=== PATIENT | female | born 1975 | race Caucasian/White ===

== ENCOUNTER 2020-12-28 14:21 | Outpatient (CLI) | payer BC | END 2020-12-28 14:22 | disposition home or self-care (01) | LOC: BICULT 14:21 | PROVIDERS: ATTEND Internal Medicine | DX: Z01.818 Encounter for other preprocedural examination (principal); N18.6 End stage renal disease | CPT/HCPCS: 93970 ==

== ENCOUNTER 2021-07-03 06:34 | Day surgery (SDC) | payer BC ==
[2021-06-27 11:32] VITALS: BMI 22.2
[2021-07-03 09:52] VITALS: BP 147/76; TEMP 98.2
[2021-07-03] MEDS ORDERED: Heparin 1,000 UNITS/ML VIAL ONE (11:56)
== END 2021-07-03 10:25 | disposition home or self-care (01) ==
LOC: SPEC 06:34
PROVIDERS: ATTEND Surgery
PROC: B51W1ZZ Fluoroscopy of Dialysis Shunt/Fistula using Low Osmolar Contrast (ICD-10-PCS; principal; 2021-07-03)
DX: T82.858A Stenosis of other vascular prosthetic devices, implants and grafts, initial encounter (principal); I13.10 Hypertensive heart and chronic kidney disease without heart failure, with stage 1 through stage 4 chronic kidney disease, or unspecified chronic kidney disease; E11.22 Type 2 diabetes mellitus with diabetic chronic kidney disease; N18.6 End stage renal disease; D63.1 Anemia in chronic kidney disease; I25.10 Atherosclerotic heart disease of native coronary artery without angina pectoris; E78.5 Hyperlipidemia, unspecified; E11.42 Type 2 diabetes mellitus with diabetic polyneuropathy; K21.9 Gastro-esophageal reflux disease without esophagitis; E78.00 Pure hypercholesterolemia, unspecified; Z86.73 Personal history of transient ischemic attack (TIA), and cerebral infarction without residual deficits; Z87.891 Personal history of nicotine dependence; Z79.02 Long term (current) use of antithrombotics/antiplatelets; Z79.899 Other long term (current) drug therapy; Z88.0 Allergy status to penicillin; Z88.6 Allergy status to analgesic agent; Z99.2 Dependence on renal dialysis
CPT/HCPCS: 36901; J1644

== ENCOUNTER 2021-07-06 07:36 | Outpatient (CLI) | payer BC ==
[2021-07-06 21:10] LABS: SARS-CoV-2 PCR by NAA Not Detected (NotDetected)
== END 2021-07-06 07:37 | disposition home or self-care (01) ==
LOC: LABBT 07:36
PROVIDERS: ATTEND Surgery
DX: Z01.812 Encounter for preprocedural laboratory examination (principal); N18.6 End stage renal disease; Z20.822 Contact with and (suspected) exposure to COVID-19
CPT/HCPCS: U0003; U0005

== ENCOUNTER 2021-07-29 18:47 | Inpatient (IN) | payer BC, OTHER ==
[~2021-07-29 18:47] MED LIST: Heparin 10,000 UNITS/ 10 ML VIAL ONE
[2021-07-29 19:41] LABS: #Eosinphils 0.1 thou/uL (0.0-0.7); #Lymphocytes 1.2 thou/uL (1.20-3.40); #Monocytes 0.6 thou/uL (0.11-0.59); #Neutrophils 4.1 thou/uL (1.40-6.50); %Basophils 0.5 % (0.0-1.0); %Eosinophils 1.9 % (0.0-10.0); %Lymphocytes 19.6 % (21.0-51.0); %Monocytes 9.3 % (0.0-10.0); %Neutrophils 68.7 % (42.0-75.0); Hemoglobin 9.1 g/dL (12.0-16.0); Mean Corpuscular HGB CONC 33.5 g/dL (32.0-36.0); Mean Corpuscular Hemoglobin 31.3 pg (27.0-31.0); Mean Corpuscular Volume 93.4 fL (78.0-98.0); Mean Platelet Volume 7.9 fL (7.4-10.4); Platelet Count 270 thou/uL (130-400); RBC Distribution Width 14.2 % (11.5-14.5); Red Blood Cell (RBC) Count 2.91 mill/uL (4.20-5.40); White Blood Cell (WBC) Count 5.9 thou/uL (4.8-10.8)
[2021-07-29 20:00] LABS: ALT (SGPT) 9 U/L (8-55); AST (SGOT) 14 U/L (5-34); Albumin 3.7 g/dL (3.5-5.0); Alkaline Phosphatase 128 U/L (40-110); Anion Gap 22 mmol/L (10-20); BUN (Urea Nitrogen) 89 mg/dL (7.0-18.7); Bilirubin, Total 0.6 mg/dL (0.2-1.2); Calc. Creatinine Clearance 0 mL/min (70-130); Calcium 9.7 mg/dL (7.8-10.44); Carbon Dioxide 21 mmol/L (22-29); Chloride 101 mmol/L (98-107); Globulin 4.7 g/dL (2.4-3.5); Glucose 121 mg/dL (70-105); Potassium 6.3 mmol/L (3.5-5.1); Protein, Total 8.4 g/dL (6.0-8.3); Sodium 138 mmol/L (136-145)
[2021-07-29 20:19] LABS: CKMB 2.8 ng/mL (0-6.6)
[2021-07-29] MEDS ORDERED: Insulin Regular 300 UNITS/3 ML VIAL ONE (20:25)
[2021-07-29] MEDS ORDERED: Dextrose 50% Abboject 50 ML SYRINGE ONE (20:25)
[2021-07-29] MEDS ORDERED: Senokot S 8.6-50 MG TAB PO PRN (21:10)
[2021-07-29] MEDS ORDERED: Ondansetron ODT 4 MG TAB PO PRN (21:10)
[2021-07-29] MEDS ORDERED: Acetaminophen 325 MG TAB PO PRN (21:10)
[2021-07-29] MEDS ORDERED: Ondansetron PF 4 MG/2 ML Vial IVP PRN (21:10)
[2021-07-29] MEDS ORDERED: Dextrose 50% Abboject 50 ML SYRINGE SLOW IVP PRN (21:14)
[2021-07-29] MEDS ORDERED: HumaLOG 300 UNITS/3 ML VIAL SC PRN ×2 (21:14)
[2021-07-29] MEDS ORDERED: Dextrose 5% in Water 1,000 ML IV PRN (21:14)
[2021-07-29] MEDS ORDERED: hydrALAZINE 20 MG/ML VIAL SLOW IVP PRN (21:17)
[2021-07-29] MEDS ORDERED: Nitroglycerin 0.4 MG TAB (25 Tab Bottle) SL PRN (21:24)
[2021-07-29 22:05] LABS: Hemoglobin A1c 6.4 % (4.0-6.0)
[2021-07-29] MEDS ORDERED: hydrALAZINE 20 MG/ML VIAL SLOW IVP SCH (22:13)
[2021-07-29 22:15] LABS: SARS-CoV-2 NAA Rapid Test Not Detected (NotDetected)
[2021-07-29 23:54] LABS: HBSAg Index 0.18 S/CO (0-0.99); Hep B Surf Ag Non-Reactive S/CO (NonReactive)
[2021-07-30 06:18] LABS: #Eosinphils 0.1 thou/uL (0.0-0.7); #Monocytes 0.6 thou/uL (0.11-0.59); #Neutrophils 3.9 thou/uL (1.40-6.50); %Basophils 0.1 % (0.0-1.0); %Eosinophils 2.1 % (0.0-10.0); %Lymphocytes 17.7 % (21.0-51.0); %Monocytes 9.8 % (0.0-10.0); %Neutrophils 70.4 % (42.0-75.0); Hemoglobin 9.3 g/dL (12.0-16.0); Mean Corpuscular HGB CONC 32.6 g/dL (32.0-36.0); Mean Corpuscular Hemoglobin 30.1 pg (27.0-31.0); Mean Corpuscular Volume 92.4 fL (78.0-98.0); Mean Platelet Volume 7.7 fL (7.4-10.4); Platelet Count 286 thou/uL (130-400); RBC Distribution Width 14.1 % (11.5-14.5); Red Blood Cell (RBC) Count 3.09 mill/uL (4.20-5.40); White Blood Cell (WBC) Count 5.6 thou/uL (4.8-10.8)
[2021-07-30 06:39] LABS: Phosphorus 3.8 mg/dL (2.3-4.7)
[2021-07-30 06:43] LABS: Troponin I 0.161 ng/mL (< 0.028)
[2021-07-30 06:47] LABS: Anion Gap 17 mmol/L (10-20); BUN (Urea Nitrogen) 31 mg/dL (7.0-18.7); Calc. Creatinine Clearance 0 mL/min (70-130); Calcium 9.3 mg/dL (7.8-10.44); Carbon Dioxide 28 mmol/L (22-29); Chloride 98 mmol/L (98-107); Glucose 94 mg/dL (70-105); Potassium 4.2 mmol/L (3.5-5.1); Sodium 139 mmol/L (136-145)
[2021-07-30 07:47] LABS: Hemoglobin 10.2 g/dL (12.0-16.0); Mean Corpuscular HGB CONC 32.7 g/dL (32.0-36.0); Mean Corpuscular Hemoglobin 30.2 pg (27.0-31.0); Mean Corpuscular Volume 92.4 fL (78.0-98.0); Mean Platelet Volume 7.7 fL (7.4-10.4); Platelet Count 309 thou/uL (130-400); RBC Distribution Width 14.1 % (11.5-14.5); Red Blood Cell (RBC) Count 3.36 mill/uL (4.20-5.40); White Blood Cell (WBC) Count 5.6 thou/uL (4.8-10.8)
[2021-07-30 08:04] LABS: Albumin 3.9 g/dL (3.5-5.0); Anion Gap 17 mmol/L (10-20); BUN (Urea Nitrogen) 31 mg/dL (7.0-18.7); BUN/Creatinine Ratio 5.89; Calc. Creatinine Clearance 0 mL/min (70-130); Carbon Dioxide 27 mmol/L (22-29); Chloride 97 mmol/L (98-107); Glucose 97 mg/dL (70-105); Phosphorus 3.8 mg/dL (2.3-4.7); Potassium 4.2 mmol/L (3.5-5.1); Sodium 137 mmol/L (136-145)
[2021-07-30] MEDS ORDERED: Mag-Al 1200 mg/1200 mg/30 ML UDCUP ONE (08:23)
[2021-07-30] MEDS ORDERED: NIFEdipine XL 30 MG TAB ONE (08:25)
[2021-07-30] MEDS ORDERED: Lisinopril 20 MG TAB PO SCH (09:00)
[2021-07-30] MEDS ORDERED: NIFEdipine XL 30 MG TAB PO SCH (09:00)
[2021-07-30 11:34] VITALS: BMI 23.1
[2021-07-30] MEDS ORDERED: Carvedilol 3.125 MG TAB PO SCH (12:00)
[2021-07-30] MEDS ORDERED: NIFEdipine XL 60 MG TAB PO SCH (15:15)
[2021-07-30] MEDS: Carvedilol 3.125 MG TAB PO SCH (16:47)
[2021-07-30] MEDS: Lisinopril 20 MG TAB PO SCH (20:20)
[2021-07-31 07:15] LABS: Hemoglobin 9.4 g/dL (12.0-16.0); Mean Corpuscular HGB CONC 33.7 g/dL (32.0-36.0); Mean Corpuscular Hemoglobin 31.2 pg (27.0-31.0); Mean Corpuscular Volume 92.7 fL (78.0-98.0); Mean Platelet Volume 7.2 fL (7.4-10.4); Platelet Count 269 thou/uL (130-400); Red Blood Cell (RBC) Count 3.01 mill/uL (4.20-5.40); White Blood Cell (WBC) Count 4.7 thou/uL (4.8-10.8)
[2021-07-31 08:30] LABS: Iron 49 ug/dL (50-170); Iron Binding Capacity, Total 154 mcg/dL (265-497)
[2021-07-31] MEDS: Lisinopril 20 MG TAB PO SCH (08:34)
[2021-07-31] MEDS: Carvedilol 3.125 MG TAB PO SCH ×2 (08:34→16:38)
[2021-07-31] MEDS ORDERED: NIFEdipine XL 90 MG TAB PO SCH (09:00)
[2021-07-31 09:45] LABS: Albumin 3.9 g/dL (3.5-5.0)
[2021-07-31 09:47] LABS: Calcium 9.5 mg/dL (7.8-10.44); Chloride 96 mmol/L (98-107); Potassium 4.7 mmol/L (3.5-5.1); Sodium 139 mmol/L (136-145)
[2021-07-31 09:48] LABS: Glucose 155 mg/dL (70-105)
[2021-07-31 09:49] LABS: Anion Gap 22 mmol/L (10-20); Carbon Dioxide 26 mmol/L (22-29)
[2021-07-31 09:51] LABS: Calc. Creatinine Clearance 8 mL/min (70-130)
[2021-07-31 09:52] LABS: BUN (Urea Nitrogen) 51 mg/dL (7.0-18.7); BUN/Creatinine Ratio 6.57
[2021-07-31 09:59] LABS: Phosphorus 6.9 mg/dL (2.3-4.7)
[2021-07-31] MEDS ORDERED: Heparin 10,000 UNITS/ 10 ML VIAL ONE (10:26)
[2021-07-31 15:24] VITALS: BP 115/55; TEMP 97.8
== END 2021-07-31 19:03 | disposition home or self-care (01) | DRG 640 ==
LOC: ERS 18:47 → ERHOLD 21:02 → 2SE 07-30 11:27
PROVIDERS: ADMIT Student in an Organized Health Care Education/Training Program; ATTEND Internal Medicine
PROC: 5A1D70Z Performance of Urinary Filtration, Intermittent, Less than 6 Hours Per Day (ICD-10-PCS; principal; 2021-07-31)
DX: E87.5 Hyperkalemia (principal); N18.6 End stage renal disease; J96.20 Acute and chronic respiratory failure, unspecified whether with hypoxia or hypercapnia; I21.4 Non-ST elevation (NSTEMI) myocardial infarction; J18.9 Pneumonia, unspecified organism; J96.10 Chronic respiratory failure, unspecified whether with hypoxia or hypercapnia; I13.2 Hypertensive heart and chronic kidney disease with heart failure and with stage 5 chronic kidney disease, or end stage renal disease; Z20.822 Contact with and (suspected) exposure to COVID-19; E87.2 Acidosis; E87.70 Fluid overload, unspecified; I16.0 Hypertensive urgency; E78.5 Hyperlipidemia, unspecified; K21.9 Gastro-esophageal reflux disease without esophagitis; E11.22 Type 2 diabetes mellitus with diabetic chronic kidney disease; I50.9 Heart failure, unspecified; E78.00 Pure hypercholesterolemia, unspecified; D63.1 Anemia in chronic kidney disease; R11.2 Nausea with vomiting, unspecified; Z88.6 Allergy status to analgesic agent; Z88.0 Allergy status to penicillin; Z28.21 Immunization not carried out because of patient refusal; Z99.2 Dependence on renal dialysis; Z87.891 Personal history of nicotine dependence; Z99.81 Dependence on supplemental oxygen; Z79.899 Other long term (current) drug therapy; Z79.02 Long term (current) use of antithrombotics/antiplatelets; Z83.3 Family history of diabetes mellitus; Z82.49 Family history of ischemic heart disease and other diseases of the circulatory system
CPT/HCPCS: 36415; 36416; 71045; 80048; 80053; 80069; 82553; 82728; 83036; 83540; 83550; 83735; 84100; 84484; 85025; 85027; 87340; 93005; 94760; 96374; 96375; J0360; J1644; J1815; J2405; U0002

== ENCOUNTER 2021-09-18 06:28 | Day surgery (SDC) | payer BC, OTHER ==
[2021-09-17 14:35] VITALS: BMI 25.0
[2021-09-18 07:42] VITALS: BP 171/77; TEMP 98.6
[2021-09-18] MEDS ORDERED: FLU VACC QS2021-22(6MOS UP)/PF 60 MCG/0.5 ML SYRINGE IM ONE (08:15)
[2021-09-18] MEDS ORDERED: Iopamidol 300 61% 100 ML VIAL FS ONE (10:34)
== END 2021-09-18 10:00 | disposition home or self-care (01) ==
LOC: SPEC 06:28
PROVIDERS: ATTEND Surgery
PROC: B51W1ZZ Fluoroscopy of Dialysis Shunt/Fistula using Low Osmolar Contrast (ICD-10-PCS; principal; 2021-09-18)
DX: T82.898A Other specified complication of vascular prosthetic devices, implants and grafts, initial encounter (principal); I13.2 Hypertensive heart and chronic kidney disease with heart failure and with stage 5 chronic kidney disease, or end stage renal disease; E11.22 Type 2 diabetes mellitus with diabetic chronic kidney disease; N18.6 End stage renal disease; I50.9 Heart failure, unspecified; I25.10 Atherosclerotic heart disease of native coronary artery without angina pectoris; K21.9 Gastro-esophageal reflux disease without esophagitis; E78.5 Hyperlipidemia, unspecified; Z86.73 Personal history of transient ischemic attack (TIA), and cerebral infarction without residual deficits; Z79.02 Long term (current) use of antithrombotics/antiplatelets; Z79.899 Other long term (current) drug therapy; Z88.0 Allergy status to penicillin; Z88.6 Allergy status to analgesic agent; Z99.2 Dependence on renal dialysis
CPT/HCPCS: 36901; 76937; 90471; 90686; G0008; Q9967

== ENCOUNTER 2021-10-18 12:42 | Outpatient (CLI) | payer BC, OTHER | END 2021-10-18 12:43 | disposition home or self-care (01) | LOC: ULT 12:42 | PROVIDERS: ATTEND Surgery | DX: N18.6 End stage renal disease (principal); Z99.2 Dependence on renal dialysis | CPT/HCPCS: 93970 ==

== ENCOUNTER 2022-09-16 09:23 | Emergency (ER) | payer BC, OTHER ==
[2022-09-16] MEDS ORDERED: Morphine 4 MG/ML VIAL ONE (10:16)
[2022-09-16 10:20] LABS: #Eosinphils 0.1 thou/uL (0.0-0.7); #Lymphocytes 0.6 thou/uL (1.20-3.40); #Monocytes 0.6 thou/uL (0.11-0.59); #Neutrophils 4.6 thou/uL (1.40-6.50); %Basophils 0.2 % (0.0-1.0); %Eosinophils 1.2 % (0.0-10.0); %Lymphocytes 10.7 % (21.0-51.0); %Monocytes 9.9 % (0.0-10.0); Hemoglobin 9.7 g/dL (12.0-16.0); Mean Corpuscular HGB CONC 30.4 g/dL (32.0-36.0); Mean Corpuscular Hemoglobin 27.6 pg (27.0-31.0); Mean Corpuscular Volume 90.9 fl (78.0-98.0); Mean Platelet Volume 8.5 fL (7.4-10.4); Platelet Count 225 10x3/uL (130-400); Red Blood Cell (RBC) Count 3.53 mill/uL (4.20-5.40); White Blood Cell (WBC) Count 5.9 10x3/uL (4.8-10.8)
[2022-09-16 10:36] LABS: ALT (SGPT) 22 U/L (8-55); AST (SGOT) 15 U/L (5-34); Albumin 3.5 g/dL (3.5-5.0); Alkaline Phosphatase 429 U/L (40-110); Anion Gap 19 mmol/L (10-20); BUN (Urea Nitrogen) 75 mg/dL (7.0-18.7); Bilirubin, Total 0.8 mg/dL (0.2-1.2); Calc. Creatinine Clearance 0 mL/min (70-130); Calcium 8.2 mg/dL (7.8-10.44); Carbon Dioxide 23 mmol/L (22-29); Chloride 97 mmol/L (98-107); Estimated GFR 4; Globulin 3.6 g/dL (2.4-3.5); Glucose 171 mg/dL (70-105); Magnesium 2.1 mg/dL (1.6-2.6); Potassium 4.9 mmol/L (3.5-5.1); Protein, Total 7.1 g/dL (6.0-8.3); Sodium 134 mmol/L (136-145)
[2022-09-16] MEDS ORDERED: Lidocaine 1% (PF) 30 ML VIAL ONE (11:57)
[2022-09-16] MEDS ORDERED: Bupivacaine/Epinephrine 0.25% 30 ML VIAL ONE (11:57)
== END 2022-09-16 11:58 | disposition home or self-care (01) ==
LOC: ERS 09:23
DX: I12.0 Hypertensive chronic kidney disease with stage 5 chronic kidney disease or end stage renal disease (principal); N18.6 End stage renal disease; R79.89 Other specified abnormal findings of blood chemistry; E78.5 Hyperlipidemia, unspecified; Z87.891 Personal history of nicotine dependence
CPT/HCPCS: 36415; 80053; 83735; 85025; 87081; 87430; 93005; 96374; J1642; J2001; J2270

== ENCOUNTER 2023-04-02 10:56 | Emergency (ER) | payer BC, OTHER ==
[2023-04-02 11:54] LABS: #Basophils 0.1 thou/uL (0.0-0.2); #Eosinphils 0.1 thou/uL (0.0-0.7); #Monocytes 0.6 thou/uL (0.11-0.59); #Neutrophils 2.4 thou/uL (1.40-6.50); %Basophils 1.3 % (0.0-1.0); %Eosinophils 2.1 % (0.0-10.0); %Lymphocytes 18.2 % (21.0-51.0); %Neutrophils 63.4 % (42.0-75.0); Hemoglobin 11.3 g/dL (12.0-16.0); Mean Corpuscular HGB CONC 30.1 g/dL (32.0-36.0); Mean Corpuscular Volume 96.4 fl (78.0-98.0); Mean Platelet Volume 10.4 fL (7.4-10.4); Platelet Count 185 10x3/uL (130-400); White Blood Cell (WBC) Count 3.7 10x3/uL (4.8-10.8)
[2023-04-02 12:18] LABS: Anion Gap 17 mmol/L (10-20); BUN (Urea Nitrogen) 37 mg/dL (7.0-18.7); Calc. Creatinine Clearance 0 mL/min (70-130); Carbon Dioxide 24 mmol/L (22-29); Chloride 103 mmol/L (98-107); Potassium 4.6 mmol/L (3.5-5.1); Sodium 139 mmol/L (136-145)
[2023-04-02 12:19] LABS: ALT (SGPT) 8 U/L (8-55); AST (SGOT) 11 U/L (5-34); Albumin 3.8 g/dL (3.5-5.0); Alkaline Phosphatase 113 U/L (40-110); Bilirubin, Total 0.6 mg/dL (0.2-1.2); Calcium 9.1 mg/dL (7.8-10.44); Estimated GFR 9; Globulin 3.6 g/dL (2.4-3.5); Glucose 163 mg/dL (70-105); Protein, Total 7.4 g/dL (6.0-8.3)
== END 2023-04-02 14:50 | disposition home or self-care (01) ==
LOC: ERS 10:56
DX: T82.590A Other mechanical complication of surgically created arteriovenous fistula, initial encounter (principal); D72.819 Decreased white blood cell count, unspecified; E78.5 Hyperlipidemia, unspecified; I12.0 Hypertensive chronic kidney disease with stage 5 chronic kidney disease or end stage renal disease; N18.6 End stage renal disease; Z87.891 Personal history of nicotine dependence; Z79.899 Other long term (current) drug therapy
CPT/HCPCS: 36415; 80053; 85025; 99284

== ENCOUNTER 2023-09-16 02:19 | Emergency (ER) | payer BC, OTHER ==
[2023-09-16 03:32] LABS: #Basophils 0.1 thou/uL (0.0-0.2); #Eosinphils 0.1 thou/uL (0.0-0.7); #Monocytes 0.4 thou/uL (0.11-0.59); #Neutrophils 3.4 thou/uL (1.40-6.50); %Basophils 1.1 % (0.0-1.0); %Eosinophils 1.1 % (0.0-10.0); %Lymphocytes 16.8 % (21.0-51.0); %Monocytes 8.7 % (0.0-10.0); %Neutrophils 72.1 % (42.0-75.0); Hematocrit 34.2 % (36.0-47.0); Hemoglobin 10.6 g/dL (12.0-16.0); Mean Corpuscular Hemoglobin 28.6 pg (27.0-31.0); Mean Corpuscular Volume 92.2 fl (78.0-98.0); Mean Platelet Volume 12.6 fL (7.4-10.4); Platelet Count 125 10x3/uL (130-400); Red Blood Cell (RBC) Count 3.71 mill/uL (4.20-5.40); White Blood Cell (WBC) Count 4.7 10x3/uL (4.8-10.8)
[2023-09-16 03:36] LABS: Bilirubin Small (Negative); Blood, Urine Large (Negative); Glucose, Urine (Dipstick) 100 mg/dL (Negative); Ketone, Urine Negative (Negative); Leukocyte Trace (Negative); Nitrite Negative (Negative); Protein, Urine (Dipstick) > or equal to 300 mg/dL (Neg-Trace); Urobilinogen 0.2 mg/dL (Less than 2); pH, Urine 7.5 (5.0-9.0)
[2023-09-16 03:56] LABS: ALT (SGPT) 15 U/L (8-55); AST (SGOT) 16 U/L (5-34); Albumin 3.8 g/dL (3.5-5.0); Alkaline Phosphatase 152 U/L (40-110); Anion Gap 22 mmol/L (10-20); BUN (Urea Nitrogen) 93 mg/dL (7.0-18.7); Bilirubin, Total 0.9 mg/dL (0.2-1.2); Calc. Creatinine Clearance 0 mL/min (70-130); Calcium 8.6 mg/dL (7.8-10.44); Carbon Dioxide 19 mmol/L (22-29); Chloride 101 mmol/L (98-107); Estimated GFR 3; Globulin 3.3 g/dL (2.4-3.5); Glucose 174 mg/dL (70-105); Protein, Total 7.1 g/dL (6.0-8.3); Sodium 135 mmol/L (136-145)
[2023-09-16 03:59] LABS: Potassium 6.5 mmol/L (3.5-5.1)
[2023-09-16 04:18] LABS: Bacteria/HPF 3+ HPF (None Seen); CAUTI Indications for Culture Acute Hematuria; Clarity Hazy (Clear); RBC/HPF 0-3 HPF (0-3); Squamous Epithelial 0-3 HPF (0-3); WBC/HPF Greater than 50 HPF (0-3)
[2023-09-16 04:20] LABS: Urine Culture Reflex Yes Yes
[2023-09-16] MEDS ORDERED: Sodium Bicarb 50 MEQ/50 ML VIAL ONE (04:20)
[2023-09-16] MEDS ORDERED: CALCIUM GLUC 1 GM/NS 50 ML BAG ONE ×2 (04:20→04:40)
[2023-09-16] MEDS ORDERED: Insulin Regular 300 UNITS/3 ML VIAL ONE (04:21)
[2023-09-16] MEDS ORDERED: Dextrose 10% in Water 250 ML ONE (04:25)
[2023-09-16] MEDS ORDERED: Ciprofloxacin 500 MG TAB ONE (04:52)
[2023-09-16 07:17] LABS: HBSAg Index 0.24 S/CO (0-0.99); Hep B Core Total Ab Non-Reactive (NonReactive); Hep B Core Total Index 0.14 S/CO (0-0.79); Hep B Surf Ag Non-Reactive S/CO (NonReactive); Hep C IgG Ab Non-Reactive S/CO (NonReactive); Hep C Index 0.08 S/CO (0-0.79)
[2023-09-16] MEDS ORDERED: Heparin 10,000 UNITS/ 10 ML VIAL ONE (08:23)
[2023-09-16 09:24] LABS: Hep B Surf AB Indeterminate (NonReactive)
[2023-09-16 09:26] LABS: HBSAB Concentration 9.62 mIU/mL
[2023-09-17 11:37] LABS: Chlamydia by PCR, Vaginal Swab Not Detected (NotDetected); GC by PCR, Vaginal Swab Not Detected (NotDetected)
== END 2023-09-16 14:34 | disposition home or self-care (01) ==
LOC: ERS 02:19
DX: E87.5 Hyperkalemia (principal); I12.0 Hypertensive chronic kidney disease with stage 5 chronic kidney disease or end stage renal disease; N18.6 End stage renal disease; Z99.2 Dependence on renal dialysis; Z87.891 Personal history of nicotine dependence; Z79.899 Other long term (current) drug therapy
CPT/HCPCS: 36415; 36416; 80053; 81001; 85025; 86704; 87077; 87086; 87186; 87480; 87491; 87510; 87591; 87660; 90935; 93005; 94760; 96365; 96367; 96375; G0257; J0613; J1644; J1815